=== PATIENT | male | born 1950 | race Caucasian/White ===

== ENCOUNTER 2018-11-20 07:00 | Emergency (ER) | payer MEDICARE, BC ==
--- NOTE | 2018-11-20 07:21 | EDM.PDOC ---
ED HPI GENERAL MEDICAL PROBLEM - General Chief Complaint: General Stated Complaint: NOT FEELING JUST RIGHT HAS HISTORY OF HEART PROBL Time Seen by Provider: 11/20/18 07:15 Source of Information: Reports: Patient, Old Records History Limitations: Reports: No Limitations - History of Present Illness INITIAL COMMENTS - FREE TEXT/NARRATIVE: 67 yo male with known CAD presents with exertional "indigestion" for the past few days. Got relief equally with NTG and GERDA's. Is not having any symptoms now at rest here in the ER. Feels similar to that in the past that proved to be due to CAD. Took his ASA he believes today. 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: Other (see below) (none except usual meds) Epigastric Pain Score (Numeric/FACES): 1 - Related Data Allergies Allergy/AdvReac Type Severity Reaction Status Date / Time simvastatin Allergy Intermediate Muscle Verified 07/27/16 07:18 Aches lisinopril Allergy Cannot Verified 07/27/16 07:18 Remember losartan Allergy Muscle Verified 05/08/17 14:09 Aches Home Meds: Home Meds Aspirin [Halfprin] 81 mg PO DAILY 05/24/13 [History] Cholecalciferol (Vitamin D3) [Vitamin D] 1,000 unit PO BID 05/24/13 [History] Metoprolol Tartrate [Lopressor] 50 mg PO BID 05/24/13 [History] Rosuvastatin Calcium [Crestor] 10 mg PO DAILY 05/24/13 [History] Ubidecarenone/Vitamin E Mixed [Coenzyme Q10 200 MG] 1 each PO DAILY 05/24/13 [ History] metFORMIN [Glucophage] 1,000 mg PO BID 05/24/13 [History] Losartan Potassium 25 mg PO DAILY 05/28/13 [History] Multivitamin [Multiple Vitamins] 1 tab PO DAILY 05/28/13 [History] Tamsulosin HCl 0.4 mg PO DAILY 05/28/13 [History] Gluc/Arul-Msm#2/C/D3/Myron/Born [Vqjrankkhz-Odqpenkrafa-BLQ] 1 tab PO BID [History] Clopidogrel [Plavix] 75 mg PO DAILY 06/08/16 [History] Pantoprazole [Protonix] 40 mg PO ACBREAKFAST 06/08/16 [History] Tadalafil [Cialis] 20 mg PO ASDIRECTED PRN 06/08/16 [History] Nitroglycerin [Nitrostat] 0.4 mg SL ASDIRECTED PRN 07/25/16 [History] Past Medical History HEENT History: Reports: Allergic Rhinitis, Impaired Vision Cardiovascular History: Reports: CAD, High Cholesterol, Hypertension, MD Respiratory History: Reports: Sleep Apnea Gastrointestinal History: Reports: Colon Polyp Genitourinary History: Reports: BPH, Renal Calculus Musculoskeletal History: Reports: Fracture, Osteoarthritis, Other (See Below) Other Musculoskeletal History: bilateral shoulder pain Endocrine/Metabolic History: Reports: Diabetes, Type II, Obesity/BMI 30+ - Infectious Disease History Infectious Disease History: Reports: Chicken Pox, Measles, Mumps - Past Surgical History Cardiovascular Surgical History: Reports: Coronary Artery Stent Male Surgical History: Reports: Kidney Stone Extraction Social & Family History - Caffeine Use Caffeine Use: Reports: None ED ROS GENERAL - Review of Systems Review Of Systems: See Below Constitutional: Reports: No Symptoms HEENT: Reports: No Symptoms Respiratory: Reports: Shortness of Breath (with exertion only) Cardiovascular: Reports: Chest Pain (low, central with exertion only.), Dyspnea on Exertion Endocrine: Reports: No Symptoms GI/Abdominal: Reports: Abdominal Pain (epigastric) : Reports: No Symptoms Musculoskeletal: Reports: No Symptoms Skin: Reports: No Symptoms Neurological: Reports: No Symptoms Psychiatric: Reports: No Symptoms ED EXAM, GENERAL - Physical Exam Exam: See Below Exam Limited By: No Limitations General Appearance: Alert, WD/WN, No Apparent Distress Eye Exam: Bilateral Eye: Normal Inspection Ears: Normal External Exam, Normal Canal, Hearing Grossly Normal Ear Exam: Bilateral Ear: Auricle Normal, Canal Normal Nose: Normal Inspection, No Blood Throat/Mouth: Normal Inspection, Normal Lips, Normal Teeth, Normal Oropharynx, Normal Voice Head: Atraumatic, Normocephalic Neck: Normal Inspection Respiratory/Chest: No Respiratory Distress, Lungs Clear, Normal Breath Sounds, No Accessory Muscle Use Cardiovascular: Regular Rate, Rhythm, No Edema GI/Abdominal: Normal Bowel Sounds, Soft, No Distention, Tender (minimal epigastric tenderness noted) Back Exam: Normal Inspection Extremities: Normal Inspection, Normal Range of Motion, Non-Tender, No Pedal Edema Neurological: Alert, Oriented, CN II-XII Intact, Normal Cognition, No Motor/ Sensory Deficits Psychiatric: Normal Affect, Normal Mood Skin Exam: Warm, Dry, Intact, Normal Color, No Rash EKG INTERPRETATION EKG Date: 11/20/18 Time: 07:10 Rhythm: Other (paced rhythm) Rate (Beats/Min): 73 [place]: Normal P-Wave: Absent QRS: Normal ST-T: Normal QT: Normal Comparison: No Change Course - Vital Signs Last Recorded V/S: Last Vital Signs Temp 35.2 C L 11/20/18 07:17 Pulse 74 11/20/18 07:17 Resp 18 11/20/18 07:17 BP 143/91 H 11/20/18 07:17 Pulse Ox 95 11/20/18 07:17 - Orders/Labs/Meds Orders: Active Orders 24 hr Category Date Time Status Cardiac Monitoring [RC] .As Directed Care 11/20/18 07:33 Active EKG Documentation Completion [RC] ASDIRECTED Care 11/20/18 07:33 Active EKG 12 Lead [EK] Routine Ther 11/20/18 07:33 Ordered Labs: Laboratory Tests 11/20/18 11/20/18 Range/Units 07:34 07:34 WBC 7.1 (4.5-11.0) K/uL RBC 5.16 (4.30-5.90) M/uL Hgb 15.2 H (12.0-15.0) g/dL Hct 46.3 (40.0-54.0) % MCV 90 (80-98) fL MCH 30 (27-31) pg MCHC 33 (32-36) % Plt Count 103 L (150-400) K/uL Sodium 142 (140-148) mmol/L Potassium 4.1 (3.6-5.2) mmol/L Chloride 107 (100-108) mmol/L Carbon Dioxide 23 (21-32) mmol/L Anion Gap 12.4 (5.0-14.0) mmol/L BUN 17 (7-18) mg/dL Creatinine 1.0 (0.8-1.3) mg/dL Est Cr Clr Drug Dosing 73.00 mL/min Estimated GFR (MDRD) > 60 (>60) Glucose 145 H (74-106) mg/dL Calcium 9.7 (8.5-10.1) mg/dL Troponin I 0.341 H* (0.000-0.056) ng/mL Departure - Departure Time of Disposition: 08:25 Disposition: DC/Tfer to Acute Hospital 02 Condition: Fair Clinical Impression: Non-STEMI (non-ST elevated myocardial infarction) - Discharge Information *PRESCRIPTION DRUG MONITORING PROGRAM REVIEWED*: No *COPY OF PRESCRIPTION DRUG MONITORING REPORT IN PATIENT LORI: No Referrals: Jamie Brasher MD [Primary Care Provider] - Forms: ED Department Discharge - My Orders Last 24 Hours: My Active Orders 11/20/18 07:33 Cardiac Monitoring [RC] .As Directed EKG Documentation Completion [RC] ASDIRECTED EKG 12 Lead [EK] Routine - Assessment/Plan Last 24 Hours: My Active Orders 11/20/18 07:33 Cardiac Monitoring [RC] .As Directed EKG Documentation Completion [RC] ASDIRECTED EKG 12 Lead [EK] Routine
[2018-11-20] MEDS ORDERED: Aspirin 81 MG Tab.Chew PO ONE (08:00)
[2018-11-20] MEDS ORDERED: Heparin Sodium 5,000 Units/ML Vial IVPUSH ONE (08:00)
[2018-11-20] MEDS ORDERED: Heparin Sodium/D5W 25,000 UNITS/500 ML BAG IV STA (08:01)
[2018-11-20 09:03] VITALS: BP 149/81
== END 2018-11-20 09:15 ==
LOC: JP.ED 07:00
DX: I21.3 ST elevation (STEMI) myocardial infarction of unspecified site (principal); I10 Essential (primary) hypertension; E78.00 Pure hypercholesterolemia, unspecified; I25.2 Old myocardial infarction; E11.9 Type 2 diabetes mellitus without complications; Z79.82 Long term (current) use of aspirin; Z79.899 Other long term (current) drug therapy; Z88.8 Allergy status to other drugs, medicaments and biological substances
CPT/HCPCS: 36415; 80048; 84484; 85027; 93005; 96365; 99285; A9270; J1644

== ENCOUNTER 2021-07-05 06:21 | Day surgery (SDC) | payer MEDICARE, BC ==
[2021-07-05] MEDS ORDERED: Nozin Nasal Sanitizer NASBOTH ONE (06:30)
[2021-07-05] MEDS ORDERED: Bupivacaine 0.5% 30 ML SDV ONE (06:38)
[2021-07-05] MEDS ORDERED: fentaNYL 100 MCG/2 ML SDV ONE (07:23)
[2021-07-05] MEDS ORDERED: Lidocaine 0.5% 50 ML SDV ONE (07:23)
[2021-07-05] MEDS ORDERED: Propofol 200 MG/20 ML SDV ONE (07:23)
[2021-07-05] MEDS ORDERED: Midazolam 1 MG/ML 2 ML SDV ONE (07:23)
[2021-07-05] MEDS ORDERED: Lactated Ringers 1,000 ML IV SCH (07:30)
[2021-07-05] MEDS ORDERED: ceFAZolin 1 GM in Premix Bag 1 BAG IV ONE (07:30)
[2021-07-05 07:31] LABS: CORONAVIRUS COVID-19 NAA NEGATIVE (NEGATIVE)
[2021-07-05 10:03] VITALS: BP 127/74; PULSE 57
== END 2021-07-05 10:20 | disposition home or self-care (01) ==
LOC: JP.SDS 06:21
PROVIDERS: ATTEND Specialist
DX: M65.841 Other synovitis and tenosynovitis, right hand (principal); G47.33 Obstructive sleep apnea (adult) (pediatric); I10 Essential (primary) hypertension; E11.9 Type 2 diabetes mellitus without complications; N40.0 Benign prostatic hyperplasia without lower urinary tract symptoms; I25.10 Atherosclerotic heart disease of native coronary artery without angina pectoris; Z01.812 Encounter for preprocedural laboratory examination; Z20.822 Contact with and (suspected) exposure to COVID-19; Z88.8 Allergy status to other drugs, medicaments and biological substances; Z98.890 Other specified postprocedural states
CPT/HCPCS: 0241U; 26055; 36415; 80053; 85027; A9270; J0690; J2250; J2704; J3010; J3490; J7120

== ENCOUNTER 2022-06-03 07:22 | Day surgery (SDC) | payer MEDICARE, BC ==
[~2022-06-03 07:22] MED LIST: Propofol 200 MG/20 ML SDV ONE; fentaNYL 50 MCG/ML SDV ONE
[2022-06-03] MEDS ORDERED: Lactated Ringers 1,000 ML IV SCH (08:00)
[2022-06-03 10:42] VITALS: BP 126/86; PULSE 78
== END 2022-06-03 11:02 | disposition home or self-care (01) ==
LOC: JP.SDS 07:22
PROVIDERS: ATTEND Student in an Organized Health Care Education/Training Program
DX: D12.0 Benign neoplasm of cecum (principal); D12.3 Benign neoplasm of transverse colon; K57.30 Diverticulosis of large intestine without perforation or abscess without bleeding; I10 Essential (primary) hypertension; E78.00 Pure hypercholesterolemia, unspecified; E11.9 Type 2 diabetes mellitus without complications; I25.10 Atherosclerotic heart disease of native coronary artery without angina pectoris; G47.33 Obstructive sleep apnea (adult) (pediatric); Z95.5 Presence of coronary angioplasty implant and graft; Z79.899 Other long term (current) drug therapy; Z88.8 Allergy status to other drugs, medicaments and biological substances
CPT/HCPCS: 45380; 45385; J2704; J3010; J7120; 88305

== ENCOUNTER 2022-06-11 13:06 | Emergency (ER) | payer MEDICARE, BC ==
[2022-06-11] MEDS ORDERED: Ondansetron 4 MG Tab.DIS PO ONE (13:23)
[2022-06-11] MEDS ORDERED: Ketorolac 30 MG/ML SDV IM ONE (13:23)
[2022-06-11 13:36] VITALS: BP 181/107; PULSE 79
== END 2022-06-11 16:04 | disposition home or self-care (01) ==
LOC: JP.ED 13:06
DX: N13.2 Hydronephrosis with renal and ureteral calculous obstruction (principal); I25.10 Atherosclerotic heart disease of native coronary artery without angina pectoris; E78.00 Pure hypercholesterolemia, unspecified; I10 Essential (primary) hypertension; I25.2 Old myocardial infarction; M19.90 Unspecified osteoarthritis, unspecified site; E11.9 Type 2 diabetes mellitus without complications; E66.9 Obesity, unspecified; Z68.1 Body mass index [BMI] 19.9 or less, adult; Z88.8 Allergy status to other drugs, medicaments and biological substances; Z79.84 Long term (current) use of oral hypoglycemic drugs; Z79.01 Long term (current) use of anticoagulants; Z79.82 Long term (current) use of aspirin; Z79.899 Other long term (current) drug therapy
CPT/HCPCS: 74176; 96372; 99284; J1885; Q0162

== ENCOUNTER 2023-09-10 19:36 | Inpatient (IN) | payer MEDICARE, BC ==
[2023-09-10 20:10] LABS: BASOPHILS ABSOLUTE AUTO 0.01 K/uL (0.00-0.10); BASOPHILS PERCENT AUTO 0.1 % (0.1-1.3); EOSINOPHILS ABSOLUTE AUTO 0.07 K/uL (0.00-0.40); EOSINOPHILS PERCENT AUTO 0.8 % (0.0-5.4); HEMATOCRIT 44.9 % (38.4-49.7); HEMOGLOBIN 15.4 g/dL (12.9-16.9); IMMATURE GRAN ABSOLUTE AUTO 0.02 K/uL (0.00-0.23); IMMATURE GRAN PERCENT AUTO 0.2 % (0.0-0.7); LYMPHOCYTES ABSOLUTE AUTO 1.15 K/uL (0.8-3.3); LYMPHOCYTES PERCENT AUTO 12.9 % (11.4-47.7); MEAN CORPUSCULAR HEMOGLOBIN 30.6 pg (31.6-35.5); MEAN CORPUSCULAR HGB CONC 34.3 g/dL (31.6-35.5); MEAN CORPUSCULAR VOLUME 89.1 fL (81.4-99.0); MONOCYTES ABSOLUTE AUTO 0.83 K/uL (0.20-0.90); MONOCYTES PERCENT AUTO 9.3 % (3.3-12.6); NEUTROPHILS ABSOLUTE AUTO 6.83 K/uL (1.0-7.6); NEUTROPHILS PERCENT AUTO 76.7 % (40.0-78.1); PLATELET COUNT,PLT 133 K/uL (130-375); RED BLOOD CELL COUNT 5.04 M/uL (4.14-5.76); WHITE BLOOD CELL COUNT,WBC 8.9 K/uL (3.2-11.0)
[2023-09-10 20:28] LABS: A/G RATIO 0.7 (1.2-2.2); ALANINE AMINOTRANSFERASE,ALT 22 U/L (12-78); ALBUMIN 3.1 g/dL (3.4-5.0); ALKALINE PHOSPHATASE 96 U/L (46-116); ANION GAP 18.1 mmol/L (5.0-14.0); ASPARTATE AMNIOTRANSFERASE,AST 20 U/L (15-37); BILIRUBIN TOTAL 0.7 mg/dL (0.2-1.0); BLOOD UREA NITROGEN,BUN 29 mg/dL (7-18); CALCIUM 11.1 mg/dL (8.5-10.1); CARBON DIOXIDE,CO2 23 mmol/L (21-32); CHLORIDE,CL 98 mmol/L (100-108); CREATININE 1.9 mg/dL (0.8-1.3); EST CRCL DRUG DOSING (CG) 34.63 mL/min; ESTIMATED GFR 37 mL/min (>60); GLUCOSE RANDOM 220 mg/dL (74-106); POTASSIUM,K 4.1 mmol/L (3.6-5.2); PROTEIN TOTAL,TP 7.8 g/dL (6.4-8.2); SODIUM,NA 135 mmol/L (140-148)
[2023-09-10] MEDS: Sodium Chloride 0.9% 1,000 ML IV SCH ×2 (20:31→22:11)
[2023-09-10] MEDS: Ondansetron 4 MG/2 ML SDV IVPUSH ONE (20:31)
[2023-09-10 20:41] LABS: APPEARANCE,URINE SLIGHTLY CLOUDY (CLEAR); BILIRUBIN,URINE NEGATIVE (NEGATIVE); COLOR,URINE YELLOW (YELLOW); GLUCOSE,URINE NEGATIVE (NEGATIVE); KETONES,URINE 15 mg/dL (NEGATIVE); LEUKOCYTE ESTERASE,URINE SMALL (NEGATIVE); NITRITE,URINE NEGATIVE (NEGATIVE); OCCULT BLOOD,URINE SMALL (NEGATIVE); PH,URINE 5.5 (5.0-8.0); PROTEIN,URINE 100 mg/dL (NEGATIVE); UROBILINOGEN,URINE 0.2 EU/dL (0.2-1.0)
[2023-09-10 20:46] LABS: EPITHELIAL CELLS,URINE FEW; WBC,URINE 40-50 (0-5)
[2023-09-10 20:47] LABS: AMORPHOUS SEDIMENT,URINE NOT SEEN; BACTERIA,URINE MANY; MUCUS,URINE RARE
[2023-09-10 20:59] LABS: CORONAVIRUS COVID-19 NAA NEGATIVE (NEGATIVE); INFLUENZA A NAA NEGATIVE (NEGATIVE); INFLUENZA B NAA NEGATIVE (NEGATIVE); RESPIRATORY SYNCYTIAL VIR NAA NEGATIVE (NEGATIVE)
[2023-09-10] MEDS: cefTRIAXone 2 GM in Sodium Chloride 0.9% 50 ML IV ONE (21:00)
[2023-09-10] MEDS ORDERED: Docusate Sodium 100 MG Cap PO PRN (21:41)
[2023-09-10] MEDS ORDERED: Bisacodyl 5 MG Tab PO PRN (21:41)
[2023-09-10] MEDS ORDERED: Enoxaparin 30 MG/0.3 ML Syringe SUBCUT SCH (21:41)
[2023-09-10] MEDS ORDERED: Naloxone 0.4 MG/ML SDV IVPUSH PRN (21:41)
[2023-09-10] MEDS ORDERED: Ondansetron 4 MG Tab.DIS PO PRN (21:41)
[2023-09-10] MEDS ORDERED: oxyCODONE 5 MG Tab PO PRN (21:41)
[2023-09-10] MEDS ORDERED: Nitroglycerin 0.4 MG Tab.SL SL PRN (21:41)
[2023-09-10] MEDS ORDERED: Morphine 2 MG/ML SYRINGE IVPUSH PRN (21:41)
[2023-09-10] MEDS: Metoprolol Tartrate 50 MG Tab PO SCH (22:01)
[2023-09-10] MEDS: Enoxaparin 40 MG/0.4 ML Syringe SUBCUT SCH (22:02)
[2023-09-10] MEDS: Acetaminophen 325 MG Tab PO PRN (23:21)
[2023-09-11 05:47] LABS: BASOPHILS PERCENT AUTO 0.2 % (0.1-1.3); EOSINOPHILS ABSOLUTE AUTO 0.07 K/uL (0.00-0.40); EOSINOPHILS PERCENT AUTO 1.2 % (0.0-5.4); HEMATOCRIT 40.9 % (38.4-49.7); HEMOGLOBIN 13.8 g/dL (12.9-16.9); IMMATURE GRAN PERCENT AUTO 0.3 % (0.0-0.7); LYMPHOCYTES ABSOLUTE AUTO 1.15 K/uL (0.8-3.3); LYMPHOCYTES PERCENT AUTO 18.9 % (11.4-47.7); MEAN CORPUSCULAR HEMOGLOBIN 30.4 pg (31.6-35.5); MEAN CORPUSCULAR HGB CONC 33.7 g/dL (31.6-35.5); MEAN CORPUSCULAR VOLUME 90.1 fL (81.4-99.0); MONOCYTES ABSOLUTE AUTO 0.69 K/uL (0.20-0.90); MONOCYTES PERCENT AUTO 11.4 % (3.3-12.6); NEUTROPHILS ABSOLUTE AUTO 4.13 K/uL (1.0-7.6); PLATELET COUNT,PLT 105 K/uL (130-375); RED BLOOD CELL COUNT 4.54 M/uL (4.14-5.76); WHITE BLOOD CELL COUNT,WBC 6.1 K/uL (3.2-11.0)
[2023-09-11 05:53] LABS: BASOPHILS ABSOLUTE AUTO 0.01 K/uL (0.00-0.10); IMMATURE GRAN ABSOLUTE AUTO 0.02 K/uL (0.00-0.23)
[2023-09-11 06:00] LABS: CALCIUM 9.9 mg/dL (8.5-10.1); CREATININE 1.3 mg/dL (0.8-1.3); EST CRCL DRUG DOSING (CG) 50.61 mL/min; POTASSIUM,K 3.7 mmol/L (3.6-5.2)
[2023-09-11 06:04] LABS: ANION GAP 16.7 mmol/L (5.0-14.0)
[2023-09-11] MEDS: Insulin Lispro 100 Unit/ML 3 ML KwikPen SUBCUT SCH (07:36)
[2023-09-11] MEDS: Trospium 20 MG Tab PO SCH (07:37)
[2023-09-11] MEDS: Cholecalciferol (Vitamin D3) 25 MCG Tab PO SCH (08:39)
[2023-09-11] MEDS: Losartan 25 MG Tab PO SCH (08:39)
[2023-09-11] MEDS: Aspirin 81 MG Tab.EC PO SCH (08:39)
[2023-09-11] MEDS: Rosuvastatin 10 MG Tab PO SCH (08:39)
[2023-09-11] MEDS: Multivitamins with Iron/Calcium/Folic Acid/Minerals Tab PO SCH (08:39)
[2023-09-11] MEDS: Liraglutide (rDNA Origin) 0.6 MG/0.1 ML 3 ML Pen SUBCUT SCH (08:40)
[2023-09-11] MEDS ORDERED: Liraglutide (rDNA Origin) 0.6 MG/0.1 ML 3 ML Pen SUBCUT SCH (09:00)
[2023-09-11] MEDS ORDERED: FESOTERODINE FUMARATE 8 MG PO SCH (09:00)
[2023-09-11] MEDS ORDERED: AREDS2 PO SCH (09:00)
[2023-09-11] MEDS: metFORMIN 500 MG Tab PO SCH (16:52)
[2023-09-11] MEDS: cefTRIAXone 1 GM in Sodium Chloride 0.9% 50 ML IV SCH (20:29)
[2023-09-11] MEDS: Pantoprazole 40 MG Tab.CR PO SCH (20:30)
[2023-09-12 04:45] LABS: BASOPHILS PERCENT AUTO 0.4 % (0.1-1.3); EOSINOPHILS ABSOLUTE AUTO 0.17 K/uL (0.00-0.40); EOSINOPHILS PERCENT AUTO 3.6 % (0.0-5.4); HEMATOCRIT 40.7 % (38.4-49.7); HEMOGLOBIN 13.8 g/dL (12.9-16.9); IMMATURE GRAN PERCENT AUTO 0.2 % (0.0-0.7); LYMPHOCYTES ABSOLUTE AUTO 1.08 K/uL (0.8-3.3); LYMPHOCYTES PERCENT AUTO 22.7 % (11.4-47.7); MEAN CORPUSCULAR HEMOGLOBIN 30.5 pg (31.6-35.5); MEAN CORPUSCULAR HGB CONC 33.9 g/dL (31.6-35.5); MEAN CORPUSCULAR VOLUME 89.8 fL (81.4-99.0); MONOCYTES PERCENT AUTO 14.7 % (3.3-12.6); NEUTROPHILS ABSOLUTE AUTO 2.77 K/uL (1.0-7.6); NEUTROPHILS PERCENT AUTO 58.4 % (40.0-78.1); PLATELET COUNT,PLT 109 K/uL (130-375); RED BLOOD CELL COUNT 4.53 M/uL (4.14-5.76); WHITE BLOOD CELL COUNT,WBC 4.8 K/uL (3.2-11.0)
[2023-09-12 04:58] LABS: CALCIUM 9.8 mg/dL (8.5-10.1); CREATININE 1.1 mg/dL (0.8-1.3); EST CRCL DRUG DOSING (CG) 59.81 mL/min
[2023-09-12 05:12] LABS: BASOPHILS ABSOLUTE AUTO 0.02 K/uL (0.00-0.10); IMMATURE GRAN ABSOLUTE AUTO 0.01 K/uL (0.00-0.23)
[2023-09-12 05:32] VITALS: BP 137/81; PULSE 82
== END 2023-09-12 11:20 | disposition home or self-care (01) | DRG 690 ==
LOC: JP.ED 19:36 → JP.MS 21:14
PROVIDERS: ADMIT Hospitalist; ATTEND Hospitalist
DX: N39.0 Urinary tract infection, site not specified (principal); N30.00 Acute cystitis without hematuria; N28.9 Disorder of kidney and ureter, unspecified; E11.9 Type 2 diabetes mellitus without complications; N17.9 Acute kidney failure, unspecified; N32.81 Overactive bladder; I25.10 Atherosclerotic heart disease of native coronary artery without angina pectoris; E11.69 Type 2 diabetes mellitus with other specified complication; I10 Essential (primary) hypertension; E86.0 Dehydration; B96.20 Unspecified Escherichia coli [E. coli] as the cause of diseases classified elsewhere; E66.9 Obesity, unspecified; E78.00 Pure hypercholesterolemia, unspecified; I25.2 Old myocardial infarction; I25.83 Coronary atherosclerosis due to lipid rich plaque; E11.22 Type 2 diabetes mellitus with diabetic chronic kidney disease; N18.32 Chronic kidney disease, stage 3b; M19.90 Unspecified osteoarthritis, unspecified site; N40.1 Benign prostatic hyperplasia with lower urinary tract symptoms; R35.0 Frequency of micturition; Z68.31 Body mass index [BMI] 31.0-31.9, adult; Z95.5 Presence of coronary angioplasty implant and graft; Z86.16 Personal history of COVID-19; Z88.8 Allergy status to other drugs, medicaments and biological substances; Z79.82 Long term (current) use of aspirin; Z79.84 Long term (current) use of oral hypoglycemic drugs; Z79.899 Other long term (current) drug therapy; Z86.010 Personal history of colon polyps; Z98.890 Other specified postprocedural states
CPT/HCPCS: 0241U; 36415; 80048; 80053; 81001; 82947; 83605; 83690; 84484; 85025; 87040; 87086; 87088; 87186; 93005; 99222; 99232; 99238; A9270-GY; J0696; J1650; J1815; J2405; J3490; J7030

== ENCOUNTER 2023-10-12 16:39 | Emergency (ER) | payer MEDICARE, BC ==
[2023-10-12 17:46] LABS: BASOPHILS PERCENT AUTO 0.2 % (0.1-1.3); EOSINOPHILS ABSOLUTE AUTO 0.07 K/uL (0.00-0.40); EOSINOPHILS PERCENT AUTO 0.7 % (0.0-5.4); HEMOGLOBIN 15.1 g/dL (12.9-16.9); IMMATURE GRAN ABSOLUTE AUTO 0.03 K/uL (0.00-0.23); IMMATURE GRAN PERCENT AUTO 0.3 % (0.0-0.7); LYMPHOCYTES ABSOLUTE AUTO 1.43 K/uL (0.8-3.3); LYMPHOCYTES PERCENT AUTO 13.8 % (11.4-47.7); MEAN CORPUSCULAR HEMOGLOBIN 30.4 pg (31.6-35.5); MEAN CORPUSCULAR HGB CONC 34.3 g/dL (31.6-35.5); MEAN CORPUSCULAR VOLUME 88.7 fL (81.4-99.0); MONOCYTES ABSOLUTE AUTO 0.89 K/uL (0.20-0.90); MONOCYTES PERCENT AUTO 8.6 % (3.3-12.6); NEUTROPHILS PERCENT AUTO 76.4 % (40.0-78.1); PLATELET COUNT,PLT 140 K/uL (130-375); RED BLOOD CELL COUNT 4.96 M/uL (4.14-5.76); WHITE BLOOD CELL COUNT,WBC 10.3 K/uL (3.2-11.0)
[2023-10-12 17:47] LABS: BASOPHILS ABSOLUTE AUTO 0.02 K/uL (0.00-0.10)
[2023-10-12 17:52] LABS: APPEARANCE,URINE CLOUDY (CLEAR); BILIRUBIN,URINE NEGATIVE (NEGATIVE); COLOR,URINE YELLOW (YELLOW); GLUCOSE,URINE NEGATIVE (NEGATIVE); KETONES,URINE 15 mg/dL (NEGATIVE); LEUKOCYTE ESTERASE,URINE SMALL (NEGATIVE); NITRITE,URINE NEGATIVE (NEGATIVE); OCCULT BLOOD,URINE NEGATIVE (NEGATIVE); PH,URINE 5.5 (5.0-8.0); PROTEIN,URINE 100 mg/dL (NEGATIVE); UROBILINOGEN,URINE 0.2 EU/dL (0.2-1.0)
[2023-10-12] MEDS: Sodium Chloride 0.9% 10 ML Syringe FLUSH PRN (17:54)
[2023-10-12 18:04] LABS: AMORPHOUS SEDIMENT,URINE NOT SEEN; BACTERIA,URINE MANY; EPITHELIAL CELLS,URINE FEW; MUCUS,URINE NOT SEEN; RBC,URINE 0-5 (0-5); WBC,URINE 50-75 (0-5)
[2023-10-12 18:07] VITALS: BP 136/81; PULSE 108
[2023-10-12 18:26] LABS: CALCIUM 10.4 mg/dL (8.5-10.1); CREATININE 1.3 mg/dL (0.8-1.3); EST CRCL DRUG DOSING (CG) 50.61 mL/min; POTASSIUM,K 4.1 mmol/L (3.6-5.2)
[2023-10-12 18:29] LABS: ANION GAP 16.1 mmol/L (5.0-14.0)
== END 2023-10-12 19:01 | disposition home or self-care (01) ==
LOC: JP.ED 16:39
DX: N30.00 Acute cystitis without hematuria (principal); I25.10 Atherosclerotic heart disease of native coronary artery without angina pectoris; E78.00 Pure hypercholesterolemia, unspecified; I10 Essential (primary) hypertension; I25.2 Old myocardial infarction; E11.9 Type 2 diabetes mellitus without complications; E66.9 Obesity, unspecified; Z88.8 Allergy status to other drugs, medicaments and biological substances; Z79.82 Long term (current) use of aspirin; Z79.899 Other long term (current) drug therapy; Z86.19 Personal history of other infectious and parasitic diseases; Z95.5 Presence of coronary angioplasty implant and graft; Z68.31 Body mass index [BMI] 31.0-31.9, adult
CPT/HCPCS: 36415; 51798; 80048; 81001; 83605; 85025; 87086; 99284; J3490; 87088; 87186; 99283

== ENCOUNTER 2024-10-07 07:49 | Inpatient (IN) | payer MEDICARE, BC ==
[2024-10-07] MEDS: Lactated Ringers 1,000 ML IV SCH (08:34)
[2024-10-07 08:38] LABS: HEMATOCRIT 47.4 % (38.4-49.7); HEMOGLOBIN 15.8 g/dL (12.9-16.9); MEAN CORPUSCULAR HEMOGLOBIN 31.3 pg (31.6-35.5); MEAN CORPUSCULAR HGB CONC 33.3 g/dL (31.6-35.5); MEAN CORPUSCULAR VOLUME 93.9 fL (81.4-99.0); RED BLOOD CELL COUNT 5.05 M/uL (4.14-5.76); WHITE BLOOD CELL COUNT,WBC 5.7 K/uL (3.2-11.0)
[2024-10-07 09:01] LABS: CALCIUM 9.6 mg/dL (8.5-10.1); CREATININE 1.1 mg/dL (0.8-1.3); EST CRCL DRUG DOSING (CG) 58.92 mL/min; POTASSIUM,K 4.3 mmol/L (3.6-5.2)
[2024-10-07 09:02] LABS: ANION GAP 16.3 mmol/L (5.0-14.0)
[2024-10-07] MEDS: Nozin Nasal Sanitizer NASBOTH SCH ×2 (09:09→20:33)
[2024-10-07] MEDS ORDERED: Neostigmine Methylsulfate 10 MG/10 ML MDV ONE (09:29)
[2024-10-07] MEDS ORDERED: Propofol 200 MG/20 ML SDV ONE (09:29)
[2024-10-07] MEDS ORDERED: Glycopyrrolate 0.2 MG/ML 5 ML MDV ONE (09:29)
[2024-10-07] MEDS ORDERED: Ondansetron 4 MG/2 ML SDV ONE (09:29)
[2024-10-07] MEDS ORDERED: Dexamethasone 4 MG/ML SDV ONE (09:29)
[2024-10-07] MEDS ORDERED: Rocuronium 50 MG/5 ML Vial ONE ×2 (09:29→14:18)
[2024-10-07] MEDS ORDERED: fentaNYL 250 MCG/5 ML SDV ONE (09:29)
[2024-10-07] MEDS ORDERED: Succinylcholine 200 MG/10 ML MDV ONE (09:29)
[2024-10-07] MEDS ORDERED: ePHEDrine 50 MG/ML SDV ONE (13:03)
[2024-10-07] MEDS: ceFAZolin 2 GM in Premix Bag 1 BAG IV ONE (13:20)
[2024-10-07] MEDS ORDERED: Bupivacaine 0.5% 30 ML SDV ONE (14:22)
[2024-10-07] MEDS ORDERED: Sugammadex Sodium 200 MG/2 ML VIAL IV ONE (14:31)
[2024-10-07] MEDS ORDERED: Lactated Ringers 1,000 ML ONE (14:38)
[2024-10-07] MEDS: Bupivacaine 0.5% 30 ML SDV ONE (14:42)
[2024-10-07] MEDS ORDERED: oxyCODONE 5 MG Tab PO PRN (15:03)
[2024-10-07] MEDS ORDERED: Docusate Sodium 100 MG Cap PO PRN (15:04)
[2024-10-07] MEDS ORDERED: Morphine 2 MG/ML SYRINGE IV PRN (15:04)
[2024-10-07] MEDS ORDERED: Magnesium Hydroxide 400 MG/5 ML Susp 30 ML Cup PO PRN (15:04)
[2024-10-07] MEDS ORDERED: Nitroglycerin 0.4 MG Tab.SL SL PRN (15:54)
[2024-10-07] MEDS ORDERED: Sodium Chloride 0.9% 1,000 ML IV SCH (16:00)
[2024-10-07] MEDS: Acetaminophen 325 MG Tab PO SCH (17:02)
[2024-10-07] MEDS: metFORMIN 500 MG Tab PO SCH (17:02)
[2024-10-07] MEDS: Ketorolac 15 MG/ML SDV IVPUSH PRN (17:48)
[2024-10-07] MEDS: oxyCODONE 5 MG Tab PO PRN (20:30)
[2024-10-07] MEDS: ceFAZolin 2 GM in Premix Bag 1 BAG IV SCH (20:30)
[2024-10-07] MEDS: Cholecalciferol (Vitamin D3) 25 MCG Tab PO SCH (20:32)
[2024-10-07] MEDS: Metoprolol Tartrate 50 MG Tab PO SCH (20:33)
[2024-10-07] MEDS ORDERED: Nitrofurantoin Monohydrate/Macrocrystalline 100 MG Cap PO SCH (21:00)
[2024-10-07] MEDS ORDERED: Non-Formulary Medication 1 Each (Vit A/Vit C/Vit E/Zinc/Copper [Preservision] 1 EACH Table PO SCH (21:00)
[2024-10-07] MEDS ORDERED: AREDS2 PO SCH (21:00)
[2024-10-08 06:00] LABS: HEMATOCRIT 41.4 % (38.4-49.7); HEMOGLOBIN 13.7 g/dL (12.9-16.9); MEAN CORPUSCULAR HEMOGLOBIN 31.1 pg (31.6-35.5); MEAN CORPUSCULAR HGB CONC 33.1 g/dL (31.6-35.5); MEAN CORPUSCULAR VOLUME 93.9 fL (81.4-99.0); RED BLOOD CELL COUNT 4.41 M/uL (4.14-5.76); WHITE BLOOD CELL COUNT,WBC 8.2 K/uL (3.2-11.0)
[2024-10-08] MEDS: Alfuzosin 10 MG Tab.ER PO SCH (08:10)
[2024-10-08] MEDS: Rosuvastatin 10 MG Tab PO SCH (08:10)
[2024-10-08] MEDS: Multivitamins with Iron/Calcium/Folic Acid/Minerals Tab PO SCH (08:10)
[2024-10-08] MEDS: Aspirin 325 MG Tab.EC PO SCH (08:10)
[2024-10-08] MEDS: Liraglutide (rDNA Origin) 0.6 MG/0.1 ML 3 ML Pen SUBCUT SCH (08:14)
[2024-10-08] MEDS ORDERED: Non-Formulary Medication 1 Each (Ubidecarenone [Co Q-10] 100 MG Capsule) PO SCH (09:00)
[2024-10-08] MEDS: Losartan 25 MG Tab PO SCH (09:05)
[2024-10-08] MEDS: Sodium Chloride 0.9% 500 ML IV SCH (12:29)
[2024-10-08] MEDS: Ondansetron 4 MG/2 ML SDV IVPUSH PRN (12:44)
[2024-10-08] MEDS: traMADol 50 MG Tab PO ONE (13:28)
[2024-10-08] MEDS: Calcium Carbonate 500 MG Tab.Chew PO PRN (15:56)
[2024-10-09 08:02] VITALS: PULSE 92
[2024-10-09 11:29] VITALS: BP 111/53
== END 2024-10-09 11:35 | disposition home or self-care (01) | DRG 483 ==
LOC: JP.SDS 07:49 → JP.MS 15:04 → JP.SDS 10-08 11:00
PROVIDERS: ADMIT Specialist; ATTEND Specialist
PROC: 0RRK0JZ Replacement of Left Shoulder Joint with Synthetic Substitute, Open Approach (ICD-10-PCS; principal; 2024-10-07 09:30)
DX: M75.122 Complete rotator cuff tear or rupture of left shoulder, not specified as traumatic (principal); M19.90 Unspecified osteoarthritis, unspecified site; I95.2 Hypotension due to drugs; Z68.32 Body mass index [BMI] 32.0-32.9, adult; J30.9 Allergic rhinitis, unspecified; I25.10 Atherosclerotic heart disease of native coronary artery without angina pectoris; E78.00 Pure hypercholesterolemia, unspecified; I11.9 Hypertensive heart disease without heart failure; I25.2 Old myocardial infarction; G47.30 Sleep apnea, unspecified; N40.0 Benign prostatic hyperplasia without lower urinary tract symptoms; N20.0 Calculus of kidney; E11.40 Type 2 diabetes mellitus with diabetic neuropathy, unspecified; E66.9 Obesity, unspecified; Z79.01 Long term (current) use of anticoagulants; Z86.16 Personal history of COVID-19; Z95.5 Presence of coronary angioplasty implant and graft; Z79.899 Other long term (current) drug therapy; Z98.890 Other specified postprocedural states; Z88.8 Allergy status to other drugs, medicaments and biological substances; Z79.82 Long term (current) use of aspirin
CPT/HCPCS: 01638-QZ; 36415; 73020-LT; 80048; 84484; 85027; 93005; 93010; 97110-GO; 97161-GP; 97165-GO; 97530-GP; 97535-GO; 99232; A9270-GY; C1713; C1776; J0330; J0665; J0690; J1100; J1596; J1885; J2405; J2704; J2710; J3010; J3490; J7030; J7120